=== PATIENT | male | born 1970 | race Caucasian/White ===

== ENCOUNTER 2018-07-30 21:12 | Emergency (ER) | payer MEDICAID, SELFPAY | END 2018-07-30 21:27 | disposition left against medical advice (07) | LOC: ED 21:21 | DX: L02.01 Cutaneous abscess of face (principal); R06.02 Shortness of breath; Z53.21 Procedure and treatment not carried out due to patient leaving prior to being seen by health care provider ==

== ENCOUNTER 2018-07-31 07:51 | Emergency (ER) | payer MEDICAID ==
[~2018-07-31] VITALS: Ht 180.3 cm; Wt 77.8 kg
[2018-07-31 07:57] VITALS: BP 148/96
[2018-07-31] MEDS ORDERED: DEXAMETHASONE 4 MG TABLET ONE (08:09)
[2018-07-31] MEDS ORDERED: IBUPROFEN 800 MG TABLET ONE (08:09)
[2018-07-31] MEDS ORDERED: IBUPROFEN 200 MG TABLET PO ONE (08:30)
[2018-07-31] MEDS ORDERED: DEXAMETHASONE 4 MG TABLET PO ONE (08:30)
[2018-07-31] MEDS ORDERED: BICILLIN-LA 1,200,000 UNITS/2 ML IM ONE (08:30)
== END 2018-07-31 08:54 | disposition home or self-care (01) ==
LOC: ED 08:48
DX: K08.89 Other specified disorders of teeth and supporting structures (principal)
CPT/HCPCS: 96372; 99283; J0561

== ENCOUNTER 2018-08-02 17:22 | Emergency (ER) | payer MEDICAID ==
[~2018-08-02] VITALS: Ht 180.3 cm; Wt 79.0 kg
[2018-08-02 17:28] VITALS: BP 137/97
== END 2018-08-02 18:30 | disposition home or self-care (01) ==
LOC: ED 17:47
DX: K08.89 Other specified disorders of teeth and supporting structures (principal); F17.210 Nicotine dependence, cigarettes, uncomplicated
CPT/HCPCS: 99283

== ENCOUNTER 2020-05-15 17:38 | Emergency (ER) | payer MEDICAID ==
[~2020-05-15] VITALS: Ht 175.3 cm; Wt 82.0 kg
[2020-05-15 18:05] VITALS: BP 126/90
[2020-05-15] MEDS ORDERED: LIDOCAINE 1%, 10ML INFIL ONE (18:30)
[2020-05-15] MEDS ORDERED: LIDOCAINE-MPF 1%, 5ML ONE (18:32)
--- NOTE | 2020-05-15 19:00 | NUR ---
FIRST CONTACT AFTER RECEIVING REPORT, TO Ji ADLER
--- NOTE | 2020-05-15 19:11 | NUR ---
DC HOME WITH RX/S AND INSTRUCT PT VERBALIZES UNDERSTANDING OF INSTRUCT AND FU, UNDERSTANDING OF OPIATE RX. TO FU WITH CLINIC RESOURCES PROVIDED. HOME STABLE.
== END 2020-05-15 19:19 | disposition home or self-care (01) ==
LOC: ED 18:45
DX: L02.01 Cutaneous abscess of face (principal); K02.9 Dental caries, unspecified; F17.210 Nicotine dependence, cigarettes, uncomplicated
CPT/HCPCS: 99283; 99406

== ENCOUNTER 2020-10-18 12:58 | Emergency (ER) | payer MEDICAID ==
[~2020-10-18] VITALS: Ht 180.3 cm; Wt 86.6 kg
[2020-10-18 13:15] VITALS: BP 146/85
[2020-10-18] MEDS ORDERED: SODIUM CHLORIDE FLUSH 10ML SYR IVF ONE (13:30)
== END 2020-10-18 13:39 | disposition home or self-care (01) ==
LOC: ED 13:33
DX: K04.7 Periapical abscess without sinus (principal); F17.200 Nicotine dependence, unspecified, uncomplicated
CPT/HCPCS: 99283